=== PATIENT | female | born 1990 | race Caucasian/White ===

== ENCOUNTER 2021-05-14 17:58 | Emergency (ER) | payer MEDICAID ==
[~2021-05-14] VITALS: Ht 157.5 cm; Wt 127.0 kg
[2021-05-14 18:15] VITALS: BP_SYST 133
[2021-05-14 19:06] LABS: BILIRUBIN,URINE NEGATIVE (NEGATIVE); BLOOD, URINE NEGATIVE (NEGATIVE); COLOR,URINE YELLOW (YELLOW); GLUCOSE,URINE NEGATIVE (NEGATIVE); KETONES,URINE NEGATIVE (NEGATIVE); LEUKOCYTE ESTERASE ,URINE TRACE (NEGATIVE); NITRITE, URINE NEGATIVE (NEGATIVE); PH,URINE 7.5 (5.0-8.0); PROTEIN URINE NEGATIVE (NEGATIVE); UROBILINOGEN,URINE 0.2 (0.2-1.0)
[2021-05-14 19:23] LABS: CLARITY/URINE SLIGHTLY HAZY (CLEAR)
[2021-05-14 19:42] LABS: RBC,URINE NONE SEEN /HPF (0-3)
[2021-05-14 19:43] LABS: BACTERIA,URINE FEW /HPF (None Seen); MUCUS,URINE None Seen /LPF (None Seen)
== END 2021-05-14 19:40 | disposition left against medical advice (07) ==
LOC: EDSEX 17:58 → SED 17:58
DX: N39.0 Urinary tract infection, site not specified (principal); Z53.21 Procedure and treatment not carried out due to patient leaving prior to being seen by health care provider
CPT/HCPCS: 81000; 87086